=== PATIENT | male | born 1965 | race Caucasian/White ===

== ENCOUNTER → 2017-03-03 | Outpatient (CLI) | payer BC | LOC: MW.CHFP 10:48 | PROVIDERS: ATTEND Student in an Organized Health Care Education/Training Program | DX: I10 Essential (primary) hypertension (principal); E11.65 Type 2 diabetes mellitus with hyperglycemia; E78.5 Hyperlipidemia, unspecified; R07.89 Other chest pain | CPT/HCPCS: 36415; 80053; 80061; 82044; 83036; 93005 ==

== ENCOUNTER 2018-01-28 08:56 | Day surgery (SDC) | payer BC ==
[~2018-01-28 08:56] MED LIST: Lactated Ringers 1,000 ML IV SCH; Lidocaine 2% 5 ML SDV ONE; Propofol 200 MG/20 ML SDV ONE
--- NOTE | 2018-01-28 09:42 | PCM.PREANE ---
Preanesthetic Assessment - Anesthesia/Transfusion/Family Hx Anesthesia History: Prior Anesthesia Without Reaction Family History of Anesthesia Reaction: No Transfusion History: No Prior Transfusion(s) Intubation History: Unknown - Review of Systems General: No Symptoms Pulmonary: No Symptoms Cardiovascular: No Symptoms Gastrointestinal: No Symptoms Neurological: No Symptoms Other: Reports: None - Physical Assessment O2 Sat by Pulse Oximetry: 97 Respiratory Rate: 16 Vital Signs: Last Vital Signs Temp 36.7 C 01/28/18 09:10 Pulse 100 01/28/18 09:10 Resp 16 01/28/18 09:10 BP 178/98 H 01/28/18 09:20 Pulse Ox 97 01/28/18 09:10 Height: 1.73 m Weight: 97.069 kg ASA Class: 3 Mental Status: Alert & Oriented x3 Airway Class: Mallampati = 2 Dentition: Reports: Normal Dentition (bonded front upper right tooth x1) Thyro-Mental Finger Breadths: 3 Mouth Opening Finger Breadths: 2 ROM/Head Extension: Full Lungs: Clear to Auscultation, Normal Respiratory Effort Cardiovascular: Regular Rate, Regular Rhythm - Allergies Allergies/Adverse Reactions: Allergies Allergy/AdvReac Type Severity Reaction Status Date / Time Sulfa (Sulfonamide Allergy Cannot Verified 01/25/18 11:07 Antibiotics) Remember - Blood Blood Available: No - Anesthesia Plan Pre-Op Medication Ordered: None - Acknowledgements Anesthesia Type Planned: MAC Pt an Appropriate Candidate for the Planned Anesthesia: Yes Alternatives and Risks of Anesthesia Discussed w Pt/Guardian: Yes Pt/Guardian Understands and Agrees with Anesthesia Plan: Yes PreAnesthesia Questionnaire HEENT History: Reports: Other (See Below) Other HEENT History: wears glasses Cardiovascular History: Reports: CAD, High Cholesterol, Hypertension, Stents ( x2 06/16) Respiratory History: Reports: COPD, Sleep Apnea Other Respiratory History: H&P states COPD but pt denies this, has sleep apnea but does not use CPAP Gastrointestinal History: Reports: GERD, Hepatitis, Other (See Below) (h/o diverticulitis) Other Gastrointestinal History: treated for hepatitis C in 2016 Genitourinary History: Reports: Renal Calculus Musculoskeletal History: Reports: Back Pain, Chronic, Neck Pain, Chronic Neurological History: Reports: Concussion Psychiatric History: Reports: Depression Endocrine/Metabolic History: Reports: Diabetes, Type II, Obesity/BMI 30+ - Infectious Disease History Infectious Disease History: Reports: Hepatitis C (has been treated with oral medicatons by ID doctor.) - Past Surgical History Head Surgeries/Procedures: Reports: None Cardiovascular Surgical History: Reports: Coronary Artery Stent (x2 06/16) GI Surgical History: Reports: Hernia, Inguinal (bilateral) Male Surgical History: Reports: None Musculoskeletal Surgical History: Reports: Shoulder Surgery Other Musculoskeletal Surgeries/Procedures:: hx padma RTCR - SUBSTANCE USE Smoking Status *Q: Current Some Day Smoker Tobacco Use Within Last Twelve Months: Cigarettes Second Hand Smoke Exposure: No Days Per Week of Alcohol Use: 2 Number of Drinks Per Day: 6 Total Drinks Per Week: 12 Recreational Drug Use History: No - HOME MEDS Home Medications: Home Meds Fenofibrate 160 mg PO DAILY 05/14/16 [History] Hydrocodone/Acetaminophen [Hydrocodon-Acetaminophn 10-325] 10 - 650 mg PO DAILY PRN 05/14/16 [History] Losartan/Hydrochlorothiazide [Losartan-HCTZ 50-12.5 MG] 1 tab PO DAILY 05/14/16 [History] Omeprazole 40 mg PO DAILY 05/14/16 [History] metFORMIN HCl [Glucophage] 1,000 mg PO BID 05/14/16 [History] Aspirin 81 mg PO BRK #30 tab.chew 05/15/16 [Rx] Butalb/Acetaminophen/Caffeine [Iqpfwv-Dmhcdxob-Cnsc 50-300-40] 1 tab PO ASDIRECTED PRN 01/25/18 [History] Nitroglycerin [Nitrostat] 1 tab SL ASDIRECTED PRN 01/25/18 [History] Sildenafil [Viagra] 1 tab PO ASDIRECTED PRN 01/25/18 [History] atorvaSTATin Calcium [Atorvastatin Calcium] 40 mg PO DAILY 01/25/18 [History] - CURRENT (IN HOUSE) MEDS Current Meds: Current Medications Lactated Ringer's (Ringers, Lactated) 1,000 mls @ 125 mls/hr IV ASDIRECTED FRANNY Last Admin: 01/28/18 09:26 Dose: 125 mls/hr Discontinued Medications Lidocaine (Xylocaine-Mpf 2%) Confirm Administered Dose 5 ml .ROUTE .STK-MED ONE Stop: 01/28/18 07:58 Lidocaine HCl (Xylocaine-Mpf 1%) Confirm Administered Dose 5 ml .ROUTE .STK-MED ONE Stop: 01/28/18 07:58 Propofol (Diprivan 20 Ml) Confirm Administered Dose 400 mg .ROUTE .STK-MED ONE Stop: 01/28/18 07:56
[2018-01-28] MEDS ORDERED: fentaNYL 100 MCG/2 ML SDV ONE (10:13)
[2018-01-28 11:19] VITALS: BP 117/75
--- NOTE | 2018-01-28 11:23 | PCM.OPNOTE ---
- General Post-Op/Procedure Note Date of Surgery/Procedure: 01/28/18 Operative Procedure(s): egd w bx. colonoscopy Findings: see dict [id number] Pre Op Diagnosis: diverticulitis and gerd Post-Op Diagnosis: Same Anesthesia Technique: Moderate Sedation Primary Surgeon: Tim Ferrer Pathology: egd bx Complications: None Condition: Good
--- NOTE | 2018-01-28 11:46 | PCM48HPAN ---
Post Anesthesia Note - EVALUATION WITHIN 48HRS OF ANESTHETIC Vital Signs in Normal Range: Yes Patient Participated in Evaluation: Yes Respiratory Function Stable: Yes Airway Patent: Yes Cardiovascular Function Stable: Yes Hydration Status Stable: Yes Pain Control Satisfactory: Yes Nausea and Vomiting Control Satisfactory: Yes Mental Status Recovered: Yes Resp Rate: 20 - COMMENTS/OBSERVATIONS Free Text/Narrative:: no anesthesia problems
--- NOTE | 2018-01-28 12:43 | OR ---
SURGEON: Tim Ferrer MD DATE OF PROCEDURE: 01/28/2018 PREOPERATIVE DIAGNOSES: 1. Resolving diverticulitis. 2. Acid reflux. POSTOPERATIVE DIAGNOSES: EGD diagnoses: 1. Acid reflux. 2. Gastric ulcer. 3. Duodenitis. Colonoscopy diagnosis is internal hemorrhoids. PROCEDURES PERFORMED: EGD with biopsy and colonoscopy. EGD: The patient was taken to the endoscopy room, and with the R[employer]F [employer]TER HELPER, Diprivan was administered. A well-lubricated EGD scope was gently inserted through the oropharynx, down the esophagus, passing through the gastroesophageal junction, into the stomach. The mucosa was examined upon the passage. Any etiology will be noted. Once in the stomach, we continued to advance to the distal antrum, passed through the pylorus into the second portion of the duodenum. Again, the mucosa was examined for any abnormality and etiology. The scope was then retrieved back to the stomach and then retroflexed to look at the fundus of the stomach. If a biopsy was indicated, we will biopsy the antrum, body, and gastroesophageal junction. The air will be sucked out while the scope is retrieved to reduce the patient's discomfort. The patient tolerated the procedure well. There were no intraoperative complications. Dr. Ferrer was present through the whole procedure. Prior to surgery, a time-out had been called, the patient identified, procedure identified and antibiotic administered. The patient was taken to the endoscopy room. A time out was called, patient identified, and procedure identified. Diprivan was then administrated. Patient went from awake to sleep, hearing doctor talking or door closing is normal. Perineum inspection and digital examination were then performed. A well- lubricated colonoscope was gently inserted through the rectum, advanced past the rectosigmoid junction, the descending colon, splenic flexure, transverse colon, hepatic flexure, ascending colon, arrived to the cecum. Cecum was identified as dictated in the finding. Then the scope was carefully withdrawn while attention was paid to the mucosal surface for any abnormality. Air will be sucked out during the scope withdrawal. At the rectum, retroflexed to examine any rectal diseases, fistula or hemorrhoids. Patient tolerated procedure well. There were no intraoperative complications, and Dr. Ferrer was present throughout the whole procedure. EGD FINDINGS: 1. The patient was easily sedated with ROOF BOLTER HELPER and Diprivan. The patient is soundly snoring. 2. Oropharynx and proximal esophagus are free of disease, inflammation, stricture. Distal esophagus at the GE junction at 40 shows moderate length of salmon color change consistent with moderate acid reflux. Stomach with no bile, blood, or food particle and the patient has a lydia bleeding ulcer is not bleeding though, but is a lydia ulcer at the lesser curvature and antrum is quite inflamed. Duodenal bulb is inflamed, but there is no ulcer. The other portion of duodenum is grossly normal in appearance. Scope retrieved back to the stomach and retroflexed at the fundus of stomach. There is no hiatal hernia. Biopsy done at the antrum, at the ulcer, and at the body of the stomach and GE junction at 40 and sucked out the air while scope pulling out. COLONOSCOPY FINDINGS: 1. The patient is easily sedated with ROOF BOLTER HELPER and Diprivan, the patient is soundly snoring. 2. The patient's bowel prep is left to be desirable. Large quantity of semi- formed stool and liquid stool, opaque obscured the study. It is a compromised study because of the bowel prep. Colon was rather straightforward. Cecum indicated by ileocecal fold, one-to-one indentation, and appendix orifice. Light emittance not observed. Mucosa examined while scope pulling out with constant irrigation. The patient does not have polyp, mass, growth, inflammation, stricture, ulceration, AV malformation. The patient does not have any diverticula observed and the patient has internal hemorrhoids. No external hemorrhoids. The patient would benefit from repeat colonoscopy in 10 years from today or if clinically indicated otherwise. MARGARITO / MOON /[id number]
== END 2018-01-28 11:40 | disposition home or self-care (01) ==
LOC: MW.SDS 08:56
PROVIDERS: ATTEND Surgery
DX: K29.50 Unspecified chronic gastritis without bleeding (principal); K21.9 Gastro-esophageal reflux disease without esophagitis; K64.8 Other hemorrhoids; E78.5 Hyperlipidemia, unspecified; E11.65 Type 2 diabetes mellitus with hyperglycemia; I10 Essential (primary) hypertension; J45.909 Unspecified asthma, uncomplicated; G47.30 Sleep apnea, unspecified; Z79.82 Long term (current) use of aspirin; Z79.899 Other long term (current) drug therapy; K29.80 Duodenitis without bleeding; Z88.2 Allergy status to sulfonamides
CPT/HCPCS: 43239; 45378; 82962; 88305; 88312; J3010; J7120; 00813; J2704

== ENCOUNTER 2019-02-22 01:17 | Emergency (ER) | payer BC ==
[2019-02-22 01:26] VITALS: BP 131/78
--- NOTE | 2019-02-22 01:29 | EDM.PDOC ---
ED HPI GENERAL MEDICAL PROBLEM - General Chief Complaint: General Stated Complaint: MEDICAL CLEARANCE Time Seen by Provider: 02/22/19 01:27 - History of Present Illness INITIAL COMMENTS - FREE TEXT/NARRATIVE: HISTORY AND PHYSICAL: History of present illness: Patient 54-year-old male in custody of law enforcement present for medical clearance was no complaints Review of systems: As per history of present illness and below otherwise all systems reviewed and negative. Past medical history: As per history of present illness and as reviewed below otherwise noncontributory. Surgical history: As per history of present illness and as reviewed below otherwise noncontributory. Social history: No reported history of drug or alcohol abuse. Family history: As per history of present illness and as reviewed below otherwise noncontributory. Physical exam: HEENT: Atraumatic, normocephalic, pupils reactive, negative for conjunctival pallor or scleral icterus, mucous membranes moist, throat clear, neck supple, nontender, trachea midline. Lungs: Clear to auscultation, breath sounds equal bilaterally, chest nontender. Heart: S1S2, regular, negative for clicks, rubs, or JVD. Abdomen: Soft, nondistended, nontender. Negative for masses or hepatosplenomegaly. Negative for costovertebral tenderness. Pelvis: Stable nontender. Genitourinary: Deferred. Rectal: Deferred. Extremities: Atraumatic, negative for cords or calf pain. Neurovascular unremarkable. Neuro: Awake, alert, oriented. Cranial nerves II through XII unremarkable. Cerebellum unremarkable. Motor and sensory unremarkable throughout. Exam nonfocal. Diagnostics: None Therapeutics: None Impression: #1 medical clearance for incarceration Definitive disposition and diagnosis as appropriate pending reevaluation and review of above. denies pain Pain Score (Numeric/FACES): 0 - Related Data Allergies Allergy/AdvReac Type Severity Reaction Status Date / Time Sulfa (Sulfonamide Allergy Cannot Verified 02/22/19 01:24 Antibiotics) Remember Home Meds: Home Meds Fenofibrate 160 mg PO DAILY 05/14/16 [History] Hydrocodone/Acetaminophen [Hydrocodon-Acetaminophn 10-325] 10 - 650 mg PO DAILY PRN 05/14/16 [History] Losartan/Hydrochlorothiazide [Losartan-HCTZ 50-12.5 MG] 1 tab PO DAILY 05/14/16 [History] Omeprazole 40 mg PO DAILY 05/14/16 [History] metFORMIN HCl [Glucophage] 1,000 mg PO BID 05/14/16 [History] Aspirin 81 mg PO BRK #30 tab.chew 05/15/16 [Rx] Butalb/Acetaminophen/Caffeine [Kavjwd-Ddyljxop-Tkzp 50-300-40] 1 tab PO ASDIRECTED PRN 01/25/18 [History] Nitroglycerin [Nitrostat] 1 tab SL ASDIRECTED PRN 01/25/18 [History] Sildenafil [Viagra] 1 tab PO ASDIRECTED PRN 01/25/18 [History] atorvaSTATin Calcium [Atorvastatin Calcium] 40 mg PO DAILY 01/25/18 [History] Past Medical History HEENT History: Reports: Other (See Below) Other HEENT History: wears glasses Cardiovascular History: Reports: CAD, High Cholesterol, Hypertension, Stents ( x2 06/16) Respiratory History: Reports: COPD Other Respiratory History: H&P states COPD but pt denies this, has sleep apnea but does not use CPAP Gastrointestinal History: Reports: Other (See Below) Other Gastrointestinal History: treated for hepatitis C in 2016 Genitourinary History: Reports: Renal Calculus Musculoskeletal History: Reports: Back Pain, Chronic Neurological History: Reports: Concussion Psychiatric History: Reports: Addiction, Depression Endocrine/Metabolic History: Reports: Diabetes, Type II - Infectious Disease History Infectious Disease History: Reports: Hepatitis C (has been treated with oral medicatons by ID doctor.) - Past Surgical History Head Surgeries/Procedures: Reports: None Cardiovascular Surgical History: Reports: Coronary Artery Stent (x2 06/16) GI Surgical History: Reports: Hernia, Inguinal (bilateral) Male Surgical History: Reports: None Musculoskeletal Surgical History: Reports: Shoulder Surgery Other Musculoskeletal Surgeries/Procedures:: hx padma RTCR Social & Family History - Family History Family Medical History: Unobtainable ED ROS GENERAL - Review of Systems Review Of Systems: ROS reveals no pertinent complaints other than HPI. ED EXAM, GENERAL - Physical Exam Exam: See Below (See dictation) Course - Vital Signs Last Recorded V/S: Last Vital Signs Temp 36.3 C 02/22/19 01:25 Pulse 93 02/22/19 01:25 Resp 18 02/22/19 01:25 BP 131/78 02/22/19 01:25 Pulse Ox 98 02/22/19 01:25 - Orders/Labs/Meds Labs: Laboratory Tests 02/22/19 Range/Units 01:24 POC Glucose 174 H (60-110) mg/dL Departure - Departure Time of Disposition: : Disposition: Home, Self-Care 01 Condition: Good Clinical Impression: Medical clearance for incarceration - Discharge Information Referrals: PCP,None [Primary Care Provider] - Additional Instructions: The following information is given to patients seen in the emergency department who are being discharged to home. This information is to outline your options for follow-up care. We provide all patients seen in our emergency department with a follow-up referral. The need for follow-up, as well as the timing and circumstances, are variable depending upon the specifics of your emergency department visit. If you don't have a primary care physician on staff, we will provide you with a referral. We always advise you to contact your personal physician following an emergency department visit to inform them of the circumstance of the visit and for follow-up with them and/or the need for any referrals to a consulting specialist. The emergency department will also refer you to a specialist when appropriate. This referral assures that you have the opportunity for followup care with a specialist. All of these measure are taken in an effort to provide you with optimal care, which includes your followup. Under all circumstances we always encourage you to contact your private physician who remains a resource for coordinating your care. When calling for followup care, please make the office aware that this follow-up is from your recent emergency room visit. If for any reason you are refused follow-up, please contact the [facility] emergency department at and asked to speak to the emergency department charge nurse. Follow-up primary medical doctor return as needed as discussed
== END 2019-02-22 01:30 | disposition home or self-care (01) ==
LOC: MW.ED 01:17
DX: Z02.89 Encounter for other administrative examinations (principal); I10 Essential (primary) hypertension; I25.10 Atherosclerotic heart disease of native coronary artery without angina pectoris; Z95.5 Presence of coronary angioplasty implant and graft; E11.9 Type 2 diabetes mellitus without complications; Z88.2 Allergy status to sulfonamides; Z79.82 Long term (current) use of aspirin; Z79.899 Other long term (current) drug therapy
CPT/HCPCS: 82962; 99282; 99283

== ENCOUNTER 2019-07-01 01:52 | Emergency (ER) | payer BC ==
[2019-07-01 02:00] VITALS: BP 129/84
--- NOTE | 2019-07-01 02:07 | EDM.PDOC ---
ED HPI GENERAL MEDICAL PROBLEM - General Chief Complaint: Laceration Stated Complaint: INTOXICATED Time Seen by Provider: 07/01/19 02:06 - History of Present Illness INITIAL COMMENTS - FREE TEXT/NARRATIVE: HISTORY AND PHYSICAL: History of present illness: Patient 34-year-old white male presents with a concern of facial laceration denies loss of consciousness denies update tetanus and no nausea vomiting or other complaints. Review of systems: As per history of present illness and below otherwise all systems reviewed and negative. Past medical history: As per history of present illness and as reviewed below otherwise noncontributory. Surgical history: As per history of present illness and as reviewed below otherwise noncontributory. Social history: No reported history of drug or alcohol abuse. Family history: As per history of present illness and as reviewed below otherwise noncontributory. Physical exam: HEENT: 1.5 cm moderate depth laceration with good hemostasis noted to his left forehead no step-off no depression, normocephalic, pupils reactive, negative for conjunctival pallor or scleral icterus, mucous membranes moist, throat clear , neck supple, nontender, trachea midline. Lungs: Clear to auscultation, breath sounds equal bilaterally, chest nontender. Heart: S1S2, regular, negative for clicks, rubs, or JVD. Abdomen: Soft, nondistended, nontender. Negative for masses or hepatosplenomegaly. Negative for costovertebral tenderness. Pelvis: Stable nontender. Genitourinary: Deferred. Rectal: Deferred. Extremities: Atraumatic, negative for cords or calf pain. Neurovascular unremarkable. Neuro: Awake, alert, oriented. Cranial nerves II through XII unremarkable. Cerebellum unremarkable. Motor and sensory unremarkable throughout. Exam nonfocal. Diagnostics: None Therapeutics: Patient was anesthetized 1% lidocaine without epinephrine prepped and draped in sterile manner closed with 5-0 durable suture bacitracin was applied tetanus was updated Impression: #1 facial laceration Definitive disposition and diagnosis as appropriate pending reevaluation and review of above. forehead Pain Score (Numeric/FACES): 3 - Related Data Allergies Allergy/AdvReac Type Severity Reaction Status Date / Time Sulfa (Sulfonamide Allergy Cannot Verified 07/01/19 01:56 Antibiotics) Remember Home Meds: Home Meds Fenofibrate 160 mg PO DAILY 05/14/16 [History] Hydrocodone/Acetaminophen [Hydrocodon-Acetaminophn 10-325] 10 - 650 mg PO DAILY PRN 05/14/16 [History] Losartan/Hydrochlorothiazide [Losartan-HCTZ 50-12.5 MG] 1 tab PO DAILY 05/14/16 [History] Omeprazole 40 mg PO DAILY 05/14/16 [History] metFORMIN HCl [Glucophage] 1,000 mg PO BID 05/14/16 [History] Aspirin 81 mg PO BRK #30 tab.chew 05/15/16 [Rx] Butalb/Acetaminophen/Caffeine [Ihrrmi-Fhszromz-Hush 50-300-40] 1 tab PO ASDIRECTED PRN 01/25/18 [History] Nitroglycerin [Nitrostat] 1 tab SL ASDIRECTED PRN 01/25/18 [History] Sildenafil [Viagra] 1 tab PO ASDIRECTED PRN 01/25/18 [History] atorvaSTATin Calcium [Atorvastatin Calcium] 40 mg PO DAILY 01/25/18 [History] Past Medical History HEENT History: Reports: Other (See Below) Other HEENT History: wears glasses Cardiovascular History: Reports: CAD, High Cholesterol, Hypertension, Stents Respiratory History: Reports: COPD Other Respiratory History: H&P states COPD but pt denies this, has sleep apnea but does not use CPAP Gastrointestinal History: Reports: Other (See Below) Other Gastrointestinal History: treated for hepatitis C in 2016 Genitourinary History: Reports: Renal Calculus Musculoskeletal History: Reports: Back Pain, Chronic Neurological History: Reports: Concussion Psychiatric History: Reports: Addiction, Depression Endocrine/Metabolic History: Reports: Diabetes, Type II Hematologic History: Reports: None Immunologic History: Reports: None Oncologic (Cancer) History: Reports: None Dermatologic History: Reports: None - Infectious Disease History Infectious Disease History: Reports: Hepatitis C - Past Surgical History Head Surgeries/Procedures: Reports: None Cardiovascular Surgical History: Reports: Coronary Artery Stent GI Surgical History: Reports: Hernia, Inguinal Male Surgical History: Reports: None Musculoskeletal Surgical History: Reports: Shoulder Surgery Other Musculoskeletal Surgeries/Procedures:: hx padma RTCR Social & Family History - Family History Family Medical History: Unobtainable - Tobacco Use Smoking Status *Q: Current Every Day Smoker Years of Tobacco use: 17 Packs/Tins Daily: 0.5 - Recreational Drug Use Recreational Drug Use: No ED ROS GENERAL - Review of Systems Review Of Systems: ROS reveals no pertinent complaints other than HPI. ED EXAM, SKIN/RASH Exam: See Below (Dictation) Course - Vital Signs Last Recorded V/S: Last Vital Signs Temp 36.4 C 07/01/19 01:56 Pulse 88 07/01/19 01:56 Resp 18 07/01/19 01:56 BP 129/84 07/01/19 01:56 Pulse Ox 93 L 07/01/19 01:56 - Orders/Labs/Meds Meds: Medications Discontinued Medications Generic Name Dose Route Start Last Admin Trade Name Abraham PRN Reason Stop Dose Admin Lidocaine HCl 5 ml 07/01/19 01:56 Xylocaine-Mpf 1% INJECT 07/01/19 01:57 ONETIME ONE Departure - Departure Time of Disposition: 02:06 Disposition: Home, Self-Care 01 Condition: Good Clinical Impression: Facial laceration - Discharge Information Referrals: PCP,None [Primary Care Provider] - Additional Instructions: The following information is given to patients seen in the emergency department who are being discharged to home. This information is to outline your options for follow-up care. We provide all patients seen in our emergency department with a follow-up referral. The need for follow-up, as well as the timing and circumstances, are variable depending upon the specifics of your emergency department visit. If you don't have a primary care physician on staff, we will provide you with a referral. We always advise you to contact your personal physician following an emergency department visit to inform them of the circumstance of the visit and for follow-up with them and/or the need for any referrals to a consulting specialist. The emergency department will also refer you to a specialist when appropriate. This referral assures that you have the opportunity for followup care with a specialist. All of these measure are taken in an effort to provide you with optimal care, which includes your followup. Under all circumstances we always encourage you to contact your private physician who remains a resource for coordinating your care. When calling for followup care, please make the office aware that this follow-up is from your recent emergency room visit. If for any reason you are refused follow-up, please contact the [facility] emergency department at and asked to speak to the emergency department charge nurse. Wound care as directed follow-up primary medical doctor return as needed as discussed
== END 2019-07-01 02:40 ==
LOC: MW.ED 01:52
DX: S01.81XA Laceration without foreign body of other part of head, initial encounter (principal); I10 Essential (primary) hypertension; E78.00 Pure hypercholesterolemia, unspecified; I25.10 Atherosclerotic heart disease of native coronary artery without angina pectoris; J44.9 Chronic obstructive pulmonary disease, unspecified; E11.9 Type 2 diabetes mellitus without complications; F17.210 Nicotine dependence, cigarettes, uncomplicated; Z88.2 Allergy status to sulfonamides; Z79.899 Other long term (current) drug therapy; W19.XXXA Unspecified fall, initial encounter
CPT/HCPCS: 99284